=== PATIENT | male | born 2000 | race Caucasian/White ===

== ENCOUNTER 2022-11-19 23:50 | Emergency (ER) | payer OTHER ==
[2022-11-20] MEDS ORDERED: LIDOCAINE 1% W/EPI 1:100,000 50 ML MDV ONE (00:56)
[2022-11-20] MEDS ORDERED: TETANUS & DIPHTHERIA TOX,ADULT 0.5 ML VIAL ONE (00:56)
[2022-11-20] MEDS ORDERED: BUPIVACAINE 0.5% PF 10 ML VIAL ONE (00:56)
[2022-11-20] MEDS ORDERED: MORPHINE 4 MG/ML SYR ONE (02:14)
[2022-11-20 02:25] LABS: Absolute Lymphocytes (CBC) 3.1 K/uL (0.7-4.9); Hematocrit 46.5 % (39.6-49.0); Lymphocytes % 27.2 % (15.3-44.8); MCV 85.1 fL (80-100); MPV 7.3 fL (7.6-11.3); RBC Red Blood Cell Count 5.46 M/uL (4.33-5.43)
--- NOTE | 2022-11-20 02:36 | EDPHYS ---
Physician Documentation [facility] Name: José Luis Nunez Age: 22 yrs Sex: Male : 2000 Arrival Date: 11/19/2022 Time: 23:50 Bed 14 Private MD: ED Physician Dayday Hugo HPI: 11/20 00:30 This 22 yrs old Male presents to ER via Ambulatory with complaints of Puncture Wound To cp Foot. 00:30 The patient presents with a penetrating injury, rosi of fish. The complaints affect the cp dorsum of left foot. Context: patient reports he was fishing this past evening when he kicked a fish and noticed that the rosi of the fish pierced the top of his left foot and a piece of rosi imbedded in foot. Associated signs and symptoms: The patient has no apparent associated signs or symptoms. Historical: - Allergies: 00:30 No Known Allergies; pf1 - Home Meds: 00:30 None [Active]; pf1 - PMHx: 00:30 left elbow dislocation; pf1 - PSHx: 00:30 None; pf1 - Immunization history:: Adult Immunizations up to date, Client reports having NOT received the Covid vaccine. Last tetanus immunization: < 10 years ago Flu vaccine is not up to date. - Social history:: Smoking status: Reported history of juuling and/or vaping. Patient uses alcohol, occasionally. Patient/guardian denies using street drugs. ROS: 00:35 Eyes: Negative for injury, pain, redness, and discharge. cp 00:35 Constitutional: Negative for body aches, chills, fever, poor PO intake. 00:35 Cardiovascular: Negative for chest pain, palpitations. 00:35 Respiratory: Negative for cough, shortness of breath, wheezing. 00:35 Abdomen/GI: Negative for abdominal pain, vomiting, diarrhea, constipation. 00:35 Skin: Positive for puncture, of the dorsum of left foot. 00:35 All other systems are negative. Exam: 00:40 Constitutional: The patient appears in no acute distress, alert, awake, non-toxic, well cp developed, well nourished, uncomfortable. 00:40 Head/Face: Normocephalic, atraumatic. cp 00:40 Eyes: Periorbital structures: appear normal, Conjunctiva: normal, no exudate, no injection, Sclera: no appreciated abnormality, Lids and lashes: appear normal, bilaterally. 00:40 ENT: External ear(s): are unremarkable, Nose: is normal, Mouth: Lips: moist, Oral mucosa: moist. 00:40 Chest/axilla: Inspection: normal. 00:40 Cardiovascular: Rate: normal, Rhythm: regular. 00:40 Respiratory: the patient does not display signs of respiratory distress, Respirations: normal, no use of accessory muscles, no retractions, labored breathing, is not present, Breath sounds: are clear throughout, no decreased breath sounds, no stridor, no wheezing. 00:40 Abdomen/GI: Inspection: abdomen appears normal. 00:40 Musculoskeletal/extremity: Extremities: grossly normal except: noted in the dorsum of left foot: 2 cm puncture type wound located proximal to left fourth toe with palpable foreign body, full ROM right fourth toe with extensor tendon intact, Pulses: noted to be 2+ in the left dorsalis pedis artery, the left foot Sensation intact. Vital Signs: 00:15 BP 139 / 88; Pulse 76; Resp 18; Temp 98.7; Pulse Ox 100% on R/A; Weight 72.57 kg; pf1 Height 5 ft. 8 in. ; Pain 2/10; 02:00 BP 129 / 79; Pulse 66; Resp 16; Pulse Ox 98% on R/A; jb4 03:30 BP 121 / 77; Pulse 69; Resp 16; Pulse Ox 99% on R/A; jb4 00:15 Body Mass Index 24.33 (72.57 kg, 172.72 cm) pf1 00:15 Pain Scale: Adult pf1 MDM: 00:53 Patient medically screened. 03:05 Data reviewed: vital signs, nurses notes, lab test result(s), radiologic studies, plain cp films. 03:05 I considered the following discharge prescriptions or medication management in the emergency department Medications were administered in the Emergency Department. See MAR. Counseling: I had a detailed discussion with the patient and/or guardian regarding: the historical points, exam findings, and any diagnostic results supporting the discharge/admit diagnosis, the need to transfer to another facility, [facility] does not immediately have the required specialist. Transition of care: After a detail discussion of the patient's case, care is transferred to Dayday Hugo MD. 11/20 02:00 Order name: CBC with Diff; Complete Time: 02:36 cp 11/20 02:36 Interpretation: Normal except: WBC 11.30; RBC 5.46; MPV 7.3. cp 11/20 02:00 Order name: BMP; Complete Time: 03:01 cp 11/20 03:01 Interpretation: Normal except: GFR 86. cp 11/20 00:15 Order name: XRAY Foot LEFT 3 View cp 11/20 02:00 Order name: IV; Complete Time: 02:10 cp 11/20 02:39 Order name: NPO; Complete Time: 03:12 cp Administered Medications: 00:57 Drug: Tetanus-Diphtheria Toxoid IM Adult 0.5 ml {Shoe Coverer: InVit[employer]. Exp: jb4 12/03/2023. Lot #: [id number]. } Route: IM; Site: right deltoid; 01:40 Drug: Lidocaine-Epinephrine Infiltration -1%: (1:100,000) 10 ml {Note: Administered by jb4 ER provider.} Volume: 20 ml; Route: Infiltration; 01:40 Drug: Bupivacaine Infiltration (0.5 %) 10 ml {Note: Administered by ER provider.} jb4 Volume: 10 ml; Route: Infiltration; 02:12 Drug: morphine IVP or IV 4 mg Route: IVP; Infused Over: 4 mins; Site: right antecubital;jb4 03:25 Drug: ceFAZolin IVPB 1 grams Route: IVPB; Site: right antecubital; jb4 Disposition: 04:22 Co-signature as Attending Physician, Dayday Hugo MD I reviewed the patient's care rt provided by the Advanced Practice Provider and agree with the diagnosis and treatment plan. Disposition Summary: 11/20/22 02:36 Transfer Ordered Transfer Location: [facility] cp Reason: Higher level of care cp Condition: Stable cp Problem: new cp Symptoms: have improved cp Accepting Physician: Doctor(11/20/22 04:26) jb4 Diagnosis - Puncture wound with foreign body, left foot cp Forms: - Medication Reconciliation Form cp - SBAR form cp Signatures: Dispatcher [employer] EDMS Jitendra Holalnd PA PA cp William Zendejas, RN RN jb4 Dayday Hugo MD MD rt Kelly Hinson RN RN pf1 Corrections: (The following items were deleted from the chart) 02:44 01:20 Foot Left 2 View+RAD.RAD.BRZ ordered. EDMS EDMS 03:11/19 00:35 Constitutional: Negative for body aches, chills, fever, poor PO intake, cp cp 11/20 03:07 11/19 00:35 Respiratory: Negative for cough, shortness of breath, wheezing, cp cp 11/20 03:11/19 00:35 Abdomen/GI: Negative for abdominal pain, vomiting, diarrhea, constipation, cp cp 11/20 03:11/19 00:35 Eyes: Negative for injury, pain, redness, and discharge, cp cp 11/20 03:11/19 00:35 Cardiovascular: Negative for chest pain, palpitations, cp cp 11/20 03:11/19 00:35 Skin: Positive for puncture, of the dorsum of left foot, cp cp 11/20 03:11/19 00:35 All other systems are negative, cp cp 11/20 04:26 02:36 Doctor jb4
--- NOTE | 2022-11-20 02:36 | ER ---
Nurse's Notes [facility] Name: José Luis Nunez Age: 22 yrs Sex: Male : 2000 Arrival Date: 11/19/2022 Time: 23:50 Bed 14 Private MD: Diagnosis: Puncture wound with foreign body, left foot Presentation: 11/20 00:15 Chief complaint: Patient states: Left foot pain of 2 with a puncture wound to left pf1 foot,onset 1hour ago. Patient stated was puncture by a catfish rosi while fishing. 00:15 Coronavirus screen: Vaccine status: Patient reports being unvaccinated. Client denies pf1 travel out of the [place] in the last 14 days. At this time, the client does not indicate any symptoms associated with coronavirus-19. Ebola Screen: Patient negative for fever greater than or equal to 101.5 degrees Fahrenheit, and additional compatible Ebola Virus Disease symptoms. Initial Sepsis Screen: Does the patient meet any 2 criteria? No. Patient's initial sepsis screen is negative. Does the patient have a suspected source of infection? No. Patient's initial sepsis screen is negative. Risk Assessment: Do you want to hurt yourself or someone else? Patient reports no desire to harm self or others. 00:15 Method Of Arrival: Ambulatory pf1 00:15 Acuity: JOHANNY 4 pf1 Historical: - Allergies: 00:30 No Known Allergies; pf1 - Home Meds: 00:30 None [Active]; pf1 - PMHx: 00:30 left elbow dislocation; pf1 - PSHx: 00:30 None; pf1 - Immunization history:: Adult Immunizations up to date, Client reports having NOT received the Covid vaccine. Last tetanus immunization: < 10 years ago Flu vaccine is not up to date. - Social history:: Smoking status: Reported history of juuling and/or vaping. Patient uses alcohol, occasionally. Patient/guardian denies using street drugs. Screenin:18 [facility] ED Fall Risk Assessment (Adult) History of falling in the last 3 months, jb4 including since admission No falls in past 3 months (0 pts) Confusion or Disorientation No (0 pts) Score/Fall Risk Level 0 - 2 = Low Risk Oriented to surroundings, Maintained a safe environment. Abuse screen: Denies threats or abuse. Nutritional screening: No deficits noted. Tuberculosis screening: No symptoms or risk factors identified. Assessment: 00:45 General: Appears in no apparent distress. comfortable, Behavior is calm, cooperative, jb4 appropriate for age. Pain: Complains of pain in left foot Pain does not radiate. Pain currently is 2 out of 10 on a pain scale. Neuro: Level of Consciousness is awake, alert, obeys commands, Oriented to person, place, time, situation. Cardiovascular: Patient's skin is warm and dry. Respiratory: Airway is patent Respiratory effort is even, unlabored, Respiratory pattern is regular, symmetrical. GI: No signs and/or symptoms were reported involving the gastrointestinal system. : No signs and/or symptoms were reported regarding the genitourinary system. EENT: No signs and/or symptoms were reported regarding the EENT system. Derm: Skin is intact, Skin is pink, warm \T\ dry. Musculoskeletal: Circulation, motion, and sensation intact. Range of motion: intact in all extremities. Injury Description: Puncture sustained to dorsum of left foot is. 01:25 Reassessment: Affected area is soaking in saline and Betadine per providers jb4 instructions. 02:00 Reassessment: Patient appears in no apparent distress at this time. Patient and/or jb4 family updated on plan of care and expected duration. Pain level reassessed. Patient is alert, oriented x 3, equal unlabored respirations, skin warm/dry/pink. 03:42 Reassessment: Patient appears in no apparent distress at this time. Patient and/or jb4 family updated on plan of care and expected duration. Pain level reassessed. Patient is alert, oriented x 3, equal unlabored respirations, skin warm/dry/pink. 04:24 Reassessment: Patient appears in no apparent distress at this time. Patient and/or jb4 family updated on plan of care and expected duration. Pain level reassessed. Patient is alert, oriented x 3, equal unlabored respirations, skin warm/dry/pink. Pt transferred via EMS. Vital Signs: 00:15 BP 139 / 88; Pulse 76; Resp 18; Temp 98.7; Pulse Ox 100% on R/A; Weight 72.57 kg; pf1 Height 5 ft. 8 in. ; Pain 2/10; 02:00 BP 129 / 79; Pulse 66; Resp 16; Pulse Ox 98% on R/A; jb4 03:30 BP 121 / 77; Pulse 69; Resp 16; Pulse Ox 99% on R/A; jb4 00:15 Body Mass Index 24.33 (72.57 kg, 172.72 cm) pf1 00:15 Pain Scale: Adult pf1 ED Course: 11/19 23:53 Patient arrived in ED. ja2 23:56 Jitendra Holland PA is PHCP. cp 23:56 Dayday Hugo MD is Attending Physician. cp 11/20 00:30 Triage completed. pf1 00:31 William Zendejas, THEODORE is Primary Nurse. jb4 00:37 XRAY Foot LEFT 3 View In Process Unspecified. EDMS 02:10 Inserted saline lock: 20 gauge in left antecubital area, using aseptic technique. Blood rv1 collected. 02:10 BMP Sent. rv1 02:10 CBC with Diff Sent. rv1 04:24 No provider procedures requiring assistance completed. Patient transferred, IV remains jb4 in place. 04:24 Patient has correct armband on for positive identification. Bed in low position. Call jb4 light in reach. Side rails up X 1. Client placed on continuous cardiac and pulse oximetry monitoring. NIBP monitoring applied. Administered Medications: 00:57 Drug: Tetanus-Diphtheria Toxoid IM Adult 0.5 ml {It Operations Manager: Neo PLM. Exp: jb4 12/03/2023. Lot #: [id number]. } Route: IM; Site: right deltoid; 01:40 Drug: Lidocaine-Epinephrine Infiltration -1%: (1:100,000) 10 ml {Note: Administered by jb4 ER provider.} Volume: 20 ml; Route: Infiltration; 01:40 Drug: Bupivacaine Infiltration (0.5 %) 10 ml {Note: Administered by ER provider.} jb4 Volume: 10 ml; Route: Infiltration; 02:12 Drug: morphine IVP or IV 4 mg Route: IVP; Infused Over: 4 mins; Site: right antecubital;jb4 03:25 Drug: ceFAZolin IVPB 1 grams Route: IVPB; Site: right antecubital; jb4 Outcome: 02:36 ER care complete, transfer ordered by . cp 04:24 Transferred by ground EMS to [facility], Transfer form completed. jb4 X-rays sent w/ patient. 04:24 Condition: stable 04:24 Discharge instructions given to patient, family, Instructed on the need for transfer, Demonstrated understanding of instructions. 04:26 Patient left the ED. jb4 Signatures: Dispatcher [employer] EDMS Jitendra Holland PA PA cp Bryson, James, RN RN jb4 Raquel Daniel Pamala, RN RN pf1 Ely [place] rv1 Corrections: (The following items were deleted from the chart) 00:30 00:28 Chief complaint: Patient states: Left foot pain of 2 with a puncture wound to pf1 left foot,onset 1hour ago. Patient stated was puncture by a catfish rosi while fishing pf1 03:42 03:00 BP 121 / 77; Pulse 69bpm; Resp 16bpm; Pulse Ox 99% RA; jb4 jb4 04:25 04:24 VIS not applicable for this client. jb4 jb4
[2022-11-20 02:46] LABS: Potassium 3.5 mEq/L (3.5-5.1)
[2022-11-20] MEDS ORDERED: CEFAZOLIN SODIUM 1 GM/VIAL ONE (03:35)
[2022-11-20] MEDS ORDERED: NA CHLORIDE 0.9% 50 ML ONE (03:35)
[2022-11-20 04:39] VITALS: TEMP 98.7
[2022-11-20 04:55] VITALS: BP 121/77; O2SAT 99
--- NOTE | 2022-11-20 15:23 | RAD REPORT ---
EXAM DESCRIPTION: RAD - Foot Left 3 View - 11/20/2022 12:35 am CLINICAL HISTORY: 22 years Male puncture wound TECHNIQUE: 3 views of the left foot. COMPARISON: No prior exams provided for comparison. FINDINGS: There is a shard-shaped radiodense foreign body medially perpendicular to the metatarsals, located in the fourth intermetatarsal space. It measures approximately 3.7 cm in length and 5 mm in width No acute fracture or dislocation. Joint spaces are preserved. IMPRESSION: 3.7 cm-long shard-shaped radiodense foreign body in the soft tissues between the right f ourth and fifth metatarsal. No fracture or dislocation. Electronically signed by: Margareth Hernandez MD 11/20/2022 12:56 AM CDT Due to temporary technical issues with the PACS/Fluency reporting system, reports are being signed by the in house radiologists without review as a courtesy to insure prompt reporting. The interpreting radiologist is fully responsible for the content of the report.
== END 2022-11-20 04:26 | disposition short-term general hospital (02) ==
LOC: ER 23:50
DX: S91.342A Puncture wound with foreign body, left foot, initial encounter (principal); Z23 Encounter for immunization
CPT/HCPCS: 85025; 80048; 36415; 73630; 90471; 90714; 96375; 96374; 99285; J0690